=== PATIENT | male | born 1955 | race Caucasian/White ===

== ENCOUNTER 2020-07-13 08:43 | Inpatient (IN) | payer BC, OTHER ==
[~2020-07-13] VITALS: Ht 195.6 cm; Wt 91.2 kg
--- NOTE | ~2020-07-13 | OP ---
PATIENT NAME: ALEJANDRO SPIVEY MEDICAL RECORD: [id number] :51 LOCATION:D. D.1208 ADMISSION DATE:07/18/20 SURGEON: JODI BRABA MD DATE OF OPERATION: 07/18/2020 PREOPERATIVE DIAGNOSES: 1. Avascular necrosis, left hip. 2. Osteoarthritis, left hip. POSTOPERATIVE DIAGNOSES: 1. Avascular necrosis, left hip. 2. Osteoarthritis, left hip. PROCEDURE PERFORMED: Left total hip arthroplasty. INDICATIONS FOR THE PROCEDURE: Mr. Spivey is a 64-year-old male with history of left hip pain. X-rays show evidence of advanced avascular necrosis with collapse as well as some arthritis in the hip. I talked with him. Pain is worsening and is beginning to affect his mobility. He has elected to proceed with surgery for left total hip arthroplasty. Risks, benefits and alternatives of surgery were discussed with the patient and consent was obtained. DESCRIPTION OF THE PROCEDURE: The patient was met in the holding area where his identity and confirmation of procedure was performed. Left lower extremity was marked. He was taken to the operating room where he was placed supine on the operating table and anesthesia was administered. He was then positioned on the Burnham table. Extremities were positioned and padded appropriately. Left lower extremity was prepped and draped in a sterile fashion. The patient received preoperative antibiotics as well as TXA and a timeout was performed before initiating the case. On initiation of the case, an anterior Shi-Krishna approach was utilized for our exposure. We incised through the skin and subcutaneous tissues, dissected down to the tensor fascia. The fascia was then split longitudinally and the interval between tensor and sartorius/rectus was utilized for deep exposure. The lateral circumflex vessels were identified, tagged and cauterized. We then dissected down to the anterior hip capsules, placed retractors around the superior and inferior femoral neck. Retractor was also placed over the anterior brim of the acetabulum. The anterior capsule was then excised. It was noted to be very thickened and inflamed. Once the capsule was excised, the retractors were repositioned around our femoral neck and our femoral neck cut was completed. The femoral head was removed with the corkscrew device. The head measured a size 54 and there was a large flap of cartilage over the superior aspect of the head that was loose with a subchondral bony collapse. Retractors were repositioned around the acetabulum and tissue from around the acetabulum and the floor of the acetabulum was debrided. We then began reaming starting with a size 43 and reaming up sequentially to a size [address] a 58-mm cup. The cup was placed and malleted into position. There was noted to have good alignment and positioning on x-ray. The center cap was then placed and the liner was tapped into position. We then turned our attention to the proximal femur. The leg was externally rotated and a hook was placed under the proximal femur. We then placed retractors medially and over the shoulder and the leg was taken into extension and adduction. Tissue was released from the shoulder as the hip was elevated to allow for full exposure. Once we were pleased with our exposure, we began preparing the proximal femur using a cookie cutter followed by the canal finder. We broached up to a size 15 and trialed this with a standard head and neck. It was a little loose, but I thought we OPERATIVE REPORT [id number] ALEJANDRO SPIVEY would be able to make up for this with lengthening and our size 15 stem was placed. We then trialled with a +6 and +9 head again, but still had some instability in the hip. We therefore removed the size 15 stem and then trialled up to a 16 and a trial this with the high offset neck and +6 head and had improved fit and stability of the hip. Our final size 16 stem was placed and tapped into position. It did sit a couple millimeters proud, which assisted us with our tensioning. A +6 ceramic head was placed and tapped into position. The hip was reduced and had good stability. X-rays showed good fit of our stem with near equal leg lengths. The wound was irrigated thoroughly with saline. Joint solution was injected around the capsule of the proximal femur. The tensor fascia was closed with a running Vicryl suture. Subcutaneous tissues were irrigated thoroughly with saline and a drain was placed extrafascial. Tissue was closed over the drain. Subcutaneous skin was closed with Vicryl and the skin was closed with a Monocryl. A Prineo Dermabond dressing was then placed, covered with a sterile dressing. The patient was turned back over to anesthesia where he was awakened, extubated, and taken to the recovery room in stable condition. POSTOPERATIVE PLAN: The patient is going to be admitted for routine postoperative care. He will receive 24 hours of postoperative antibiotics, will be started on DVT prophylaxis tomorrow. Physical therapy will be consulted to assist with mobilization, weightbearing as tolerated on the left lower extremity. PLAN: Home with home health upon discharge. COMPLICATIONS: None. ESTIMATED BLOOD LOSS: 100 mL. ANESTHESIA: General. TRANSINT:[id number] Voice Confirmation ID: [id number] DOCUMENT ID: [id number] JODI BARBA MD CC: [id number] DICTATION DATE: 07/18/202036 COLLECTION CLERK: 07/19/20 0451 ADM IN [place] [id number] [place] [id number]
[2020-07-13 12:35] LABS: BILIRUBIN NEGATIVE (NEGATIVE); KETONE NEGATIVE (NEGATIVE); NITRITE NEGATIVE (NEGATIVE); UROBILINOGEN NORMAL mg/dL (< 2)
[2020-07-13] MEDS ORDERED: AMOX TR-K CLV 21 TAB PO (13:22)
[2020-07-13] MEDS ORDERED: CENTRUM MEN'S1 EACH PO (13:23)
[2020-07-13] MEDS ORDERED: ZYLOPRIM300 MG PO (13:23)
[2020-07-13] MEDS ORDERED: FENOFIBRATE160 MG PO (13:23)
[2020-07-13] MEDS ORDERED: COZAAR50 MG PO (13:23)
[2020-07-13] MEDS ORDERED: PRAVACHOL40 MG PO (13:24)
[2020-07-13] MEDS ORDERED: RELAFEN750 MG PO (13:24)
[2020-07-13] MEDS ORDERED: PROTONIX40 MG PO (13:24)
[2020-07-13] MEDS ORDERED: ERGOCALCIF50000 UNIT PO (13:25)
[2020-07-13 13:30] LABS: ANION GAP 8.3 mmol/L (8-16); CALCIUM 10.2 mg/dL (8.5-10.1); CARBON DIOXIDE 30.5 mmol/L (21.0-32.0); CREATININE - SERUM 1.1 mg/dL (0.6-1.3); POTASSIUM - SERUM 3.8 mmol/L (3.5-5.1)
[2020-07-13 13:37] LABS: APTT 30.6 SECONDS (22.8-39.4); PROTIME 12.2 SECONDS (11.6-15.0)
[2020-07-15 11:01] LABS: BASOPHILS 0.5 % (0-2); EOSINOPHILS 2.1 % (0-7); HEMATOCRIT 46.2 % (42.0-54.0); HEMOGLOBIN 15.6 g/dL (13.5-17.5); IMMATURE GRANULOCYTES 0.5 % (0-5); LYMPHOCYTE ABS# 1.08 10x3/uL (1.32-3.57); LYMPHOCYTES 17.5 % (15-50); MCH 33.5 pg (26.0-34.0); MCHC 33.8 g/dL (31.0-37.0); MCV 99.1 fL (80.0-100.0); MEAN PLATELET VOLUME 10.1 fL (7.4-10.4); MONOCYTES 9.5 % (2-11); NEUTROPHIL ABS# 4.32 10x3/uL (1.78-5.38); NEUTROPHILS 69.9 % (40-80); PLATELET COUNT 185 10x3/uL (130-400); RBC 4.66 10x6/uL (4.20-6.10); RDW 13.4 % (11.5-14.5); WBC 6.2 10x3/uL (4.8-10.8)
[2020-07-18] VITALS (14 sets, daily range): BP systolic 100–154; BP diastolic 62–88; BMI 24.1; BMI 23.9
--- NOTE | 2020-07-18 11:05 | NUR ---
RECEIVED TO ROOM 1208 VIA BED FROM PACU. A/O X3. DENIES PAIN AT THIS TIME. DRESSING TO LEFT HIP IS DRY AND INTACT. SKIN INTACT ELSEWHERE. DENIES NEEDS.
--- NOTE | 2020-07-18 18:18 | NUR ---
ATE ALL OF SUPPER. DENIES NEEDS. NO CHANGES NOTED. AT BEDSIDE.
--- NOTE | 2020-07-18 19:21 | NUR ---
PATIENT RESTING IN BED WITH NO S/S OF DISTRESS. GUEST AT BEDSIDE. VSS. PLACED SCD HOSE ON PATIENT. PATIENT STATES VERY LITTLE PAIN AND THAT HE DOES NOT NEED PAIN MEDS AT THIS TIME. DR. BARBA AT BEDSIDE, OBTAINED ORDER FOR NICOTINE PATCH PER PATIENT REQUEST. PATIENT DENIES OTHER NEEDS AT THIS TIME. BED IN LOWEST POSITION, CALL LIGHT IN REACH, BED ALARM ON, ENCOURAGED PATIENT TO CALL WITH NEEDS.
--- NOTE | 2020-07-18 19:51 | NUR ---
PATIENT STATES HE SMOKES 1.5 PACKS PER DAY. CALLED PHARMACY TO VERY WHICH NICOTINE PATCH WOULD WORK BEST AFTER RECEIVING ORDER FROM DR. BARBA.
--- NOTE | 2020-07-18 20:39 | NUR ---
ADMINISTERED MEDS PER ORDERS INCLUDING PAIN MED FOR PATIENT C/O 5 PAIN. DRESSING TO LEFT HIP C/D/I. PLACED ICE PACK TO LEFT HIP. PATIENT DEMONSTRATED PROPER USE OF INCENTIVE SPIROMETER. DENIES OTHER NEEDS AT THIS TIME.
[2020-07-19 04:50] VITALS: BP 115/70
[2020-07-19 06:03] LABS: BASOPHILS 0.2 % (0-2); EOSINOPHILS 1.1 % (0-7); HEMATOCRIT 35.8 % (42.0-54.0); HEMOGLOBIN 11.8 g/dL (13.5-17.5); IMMATURE GRANULOCYTES 0.3 % (0-5); LYMPHOCYTE ABS# 0.91 10x3/uL (1.32-3.57); LYMPHOCYTES 13.9 % (15-50); MEAN PLATELET VOLUME 10.4 fL (7.4-10.4); MONOCYTES 11.6 % (2-11); NEUTROPHIL ABS# 4.77 10x3/uL (1.78-5.38); NEUTROPHILS 72.9 % (40-80); RBC 3.58 10x6/uL (4.20-6.10); RDW 13.3 % (11.5-14.5); WBC 6.5 10x3/uL (4.8-10.8)
[2020-07-19 06:11] LABS: ALBUMIN 2.6 g/dL (3.4-5.0); ANION GAP 7.4 mmol/L (8-16); BILIRUBIN - TOTAL 0.4 mg/dL (0.2-1.3); CALCIUM 8.6 mg/dL (8.5-10.1); CARBON DIOXIDE 28.9 mmol/L (21.0-32.0); CREATININE - SERUM 1.1 mg/dL (0.6-1.3); MAGNESIUM - SERUM 1.4 mg/dL (1.8-2.4); POTASSIUM - SERUM 3.3 mmol/L (3.5-5.1); PROTEIN - SERUM 5.3 g/dL (6.4-8.2)
[2020-07-19 06:17] LABS: PLATELET COUNT 139 10x3/uL (130-400)
[2020-07-19 07:12] VITALS: BP 108/64
--- NOTE | 2020-07-19 07:28 | NUR ---
AWAKE AND ALERT. ORIENTED X3. NO C/O AT THIS TIME. LUNGS ARE CLEAR BILATERALLY, NO COUGH NOTED. REPORTED USED IS INSTRUCTED. SKIN IS INTACT WITHOUT REDNESS EXCEPT INCISION TO RIGHT GROIN AREA WHICH HAS A DRY INTACT DRESSING IN PLACE. DENIES NEEDS.
--- NOTE | 2020-07-19 08:25 | NUR ---
REQUESTED AND GIVEN ONE HYDROCODONE PO FOR C/O LEFT UPPER THIGH PAIN LEVEL 5. WILL MONITOR. ATE ALL OF BREAKFAST AND TOOK AM MEDS WITHOUT DIFFICULTY.
--- NOTE | 2020-07-19 09:30 | NUR ---
AMBULATED IN HALLWAY WITH PT USING RW. DID 200 FEET. NO C/O INCREASED PAIN REPORTED.
[2020-07-19 11:00] VITALS: BP 120/70
[2020-07-19 13:01] VITALS: Ht 195.6 cm; Wt 91.2 kg
--- NOTE | 2020-07-19 13:04 | NUR ---
ATE ALL OF LUNCH. DENIES NEEDS. VOIDED 50 CC CLEAR YELLOW URINE. WILL CONTINUE TO MONITOR.
[2020-07-19 14:00] VITALS: BP 126/72
--- NOTE | 2020-07-19 14:23 | MORECARE ---
CASE MANAGEMENT DISCHARGE SUMMARY PATIENT: ALEJANDRO SPIVEY UNIT: [id number] ADM DATE: 07/18/20 AGE: 64 : 51 SEX: M ROOM/BED: D.1208 AUTHOR: ESTEFANÍA ALMANZA PHYSICIAN: REFERRING PHYSICIAN: JODI BARBA MD DATE OF SERVICE: 07/19/20 Discharge Plan Patient Name: ALEJANDRO SPIVEY [facility] [facility] 1955 Planned Disposition: Home with Home Health Anticipated Discharge Date: Discharge Date: Expected LOS: Initial Reviewer: [email or web address] Initial Review Date: 07/18/2020 Generated: 07/19/20 3:23 pm DCPIA - Discharge Planning Initial Assessment Updated by [email or web address]: Ashley Rodriges on 07/19/20 2:23 pm * Is the patient Alert and Oriented? Yes * PCP VANDANA * Pharmacy [facility] * Preadmission Environment Home with Family * ADLs Independent * Equipment None * List name and contact numbers for known caregivers / representatives who currently or will assist patient after discharge: RASHAD ( ) [phone] * Verbal permission to speak to the caregivers and representatives has been obtained from the patient. Yes * Community resources currently utilized None * Additional services required to return to the preadmission environment? Yes * Can the patient safely return to the preadmission environment? Yes * Has this patient been hospitalized within the prior 30 days at any hospital? No Patient Name: ALEJANDRO SPIVEY Page [phone] at 1423 All edits/amendments must be made on the electronic document DICTATION DATE: 07/19/20 1423 SOFTWARE TESTER: ADELAIDA 07/19/20 1423 RPT#: [id number] DC DATE: STATUS: ADM IN [facility] [address] [place] [address] END OF REPORT
--- NOTE | 2020-07-19 14:34 | MORECARE ---
CASE MANAGEMENT DISCHARGE SUMMARY PATIENT: ALEJANDRO SPIVEY UNIT: [id number] ADM DATE: 07/18/20 AGE: 64 : 51 SEX: M ROOM/BED: D.1208 AUTHOR: ARCHIE,DOC PHYSICIAN: REFERRING PHYSICIAN: JODI BARBA MD DATE OF SERVICE: 07/19/20 Discharge Plan Patient Name: ALEJANDRO SPIVEY Facility: [facility]:[place] : 1955 Planned Disposition: Home with Home Health Anticipated Discharge Date: Discharge Date: Expected LOS: Initial Reviewer: [email or web address] Initial Review Date: 07/18/2020 Generated: 07/19/20 3:33 pm Comments DCP- Discharge Planning Updated by [id number]: Ashley Rodriges on 07/19/20 1:[address] Patient Name: ALEJANDRO SPIVEY Admission Status: Elective Accout number: [id number] Admission Date: 07-18-2020 : 1955 Admission Diagnosis: Attending: STERLING Current LOS: 1 Anticipated DC Date: Planned Disposition: Home with Home Health Primary Insurance: [employer] OUT OF STATE Discharge Planning Comments: CM met with patient & to complete initial dc planning assessment. CM educated patient on the CM role and verbal consent given by patient to complete assessment. Patient lives at home in [place] with his where he states he is independent with his care. At discharge patient plans to return home and feels this is a safe discharge. CM discussed availability of home health, rehab services, and medical equipment. He does not have any DME, but I have ordered his per his request a walker, BSC and a tub transfer bench from [facility] [place]. They will deliver it to the hospital before he is discharged. They would like to use [facility] for home health. I will send the referral to them, I called and spoke with Sofia Torres and let her know. Patient denied known discharge needs at this time. CM will continue to follow and will assist as needed with dc plans/needs Can Coverer: Ashley Rodriges DCPIA - Discharge Planning Initial Assessment Updated by [email or web address]: Ashley Rodriges on 07/19/20 2:23 pm * Is the patient Alert and Oriented? Yes * PCP VANDANA * Pharmacy [facility] * Preadmission Environment Home with Family * ADLs Independent * Equipment None * List name and contact numbers for known caregivers / representatives who currently or will assist patient after discharge: RASHAD ( ) [phone] * Verbal permission to speak to the caregivers and representatives has been obtained from the patient. Yes * Community resources currently utilized None * Additional services required to return to the preadmission environment? Yes * Can the patient safely return to the preadmission environment? Yes * Has this patient been hospitalized within the prior 30 days at any hospital? No External Providers External Provider: OTHER-OTHER Next Contact Date: Service Request Date: Service Type: Resolution: Reviewer: Comments: Last DP export: 07/19/20 1:23 pm Patient Name: ALEJANDRO SPIVEY Page [phone] at 1434 All edits/amendments must be made on the electronic document DICTATION DATE: 07/19/201432 INVESTMENT CONSULTANT: ADELAIDA 07/19/20 143 RPT#: [id number] DC DATE: STATUS: ADM IN [facility] [address] [place] [address] END OF REPORT
[2020-07-19] MEDS ORDERED: HYDROCODONE-AC1 EAC2 PO (14:44)
--- NOTE | 2020-07-19 15:22 | NUR ---
DISCHARGED TO HOME AMBULATORY WITH . DISCHARGE INSTRUCTIONS GIVEN BOTH VERBALLY AND WRITTEN. ALL QUESTIONS ANSWERED. PATIENT VERBALIZED UNDERSTANDING OF SAME. NEEDED PRESCRIPTIONS GIVEN TO PATIENT. IV TO RIGHT WRIST D/C WITH CATHETER INTACT. ALL BELONGINGS WITH PATIENT.
--- NOTE | 2020-07-19 15:34 | MORECARE ---
CASE MANAGEMENT DISCHARGE SUMMARY PATIENT: ALEJANDRO SPIVEY UNIT: [id number] ADM DATE: 07/18/20 AGE: 64 : 51 SEX: M ROOM/BED: D.1208 AUTHOR: ARCHIE,DOC PHYSICIAN: REFERRING PHYSICIAN: JODI BARBA MD DATE OF SERVICE: 07/19/20 Discharge Plan Patient Name: ALEJANDRO SPIVEY Facility: [facility]:[place] : 1955 Planned Disposition: Home with Home Health Anticipated Discharge Date: Discharge Date: 07/19/2020 Expected LOS: Initial Reviewer: [email or web address] Initial Review Date: 07/18/2020 Generated: 07/19/20 4:33 pm Comments DCP- Discharge Planning Updated by [email or web address]: Ashley Rodriges on 07/19/20 1:[address] Patient Name: ALEJANDRO SPIVEY Admission Status: Elective Accout number: [id number] Admission Date: 07-18-2020 : 1955 Admission Diagnosis: Attending: STERLING Current LOS: 1 Anticipated DC Date: Planned Disposition: Home with Home Health Primary Insurance: [employer] OUT OF STATE Discharge Planning Comments: CM met with patient & to complete initial dc planning assessment. CM educated patient on the CM role and verbal consent given by patient to complete assessment. Patient lives at home in [place] with his where he states he is independent with his care. At discharge patient plans to return home and feels this is a safe discharge. CM discussed availability of home health, rehab services, and medical equipment. He does not have any DME, but I have ordered his per his request a walker, BSC and a tub transfer bench from [facility]. They will deliver it to the hospital before he is discharged. They would like to use [facility] for home health. I will send the referral to them, I called and spoke with Sofia Torres and let her know. Patient denied known discharge needs at this time. CM will continue to follow and will assist as needed with dc plans/needs Auto Travel Counselor: Ashley Rodriges DCPIA - Discharge Planning Initial Assessment Updated by [email or web address]: Ashley Rodriges on 07/19/20 2:23 pm * Is the patient Alert and Oriented? Yes * PCP VANDANA * Pharmacy [facility] * Preadmission Environment Home with Family * ADLs Independent * Equipment None * List name and contact numbers for known caregivers / representatives who currently or will assist patient after discharge: RASHAD ( ) [phone] * Verbal permission to speak to the caregivers and representatives has been obtained from the patient. Yes * Community resources currently utilized None * Additional services required to return to the preadmission environment? Yes * Can the patient safely return to the preadmission environment? Yes * Has this patient been hospitalized within the prior 30 days at any hospital? No External Providers External Provider: OTHER-OTHER Next Contact Date: Service Request Date: Service Type: Resolution: Reviewer: Comments: Last DP export: 07/19/20 1:34 pm Patient Name: ALEJANDRO SPIVEY Page [phone] at 1534 All edits/amendments must be made on the electronic document DICTATION DATE: 07/19/20 1534 SUPPLEMENTAL MANAGER: ADELAIDA 07/19/20 1534 RPT#: [id number] DC DATE:07/19/20 STATUS: DIS IN [facility] [address] [place] [address] END OF REPORT
--- NOTE | 2020-07-20 09:22 | MORECARE ---
CASE MANAGEMENT DISCHARGE SUMMARY PATIENT: ALEJANDRO SPIVEY UNIT: [id number] ADM DATE: 07/18/20 AGE: 64 : 51 SEX: M ROOM/BED: D.1208 AUTHOR: ARCHIE,DOC PHYSICIAN: REFERRING PHYSICIAN: JODI BARBA MD DATE OF SERVICE: 07/20/20 Discharge Plan Patient Name: ALEJANDRO SPIVEY Facility: [facility]:[place] : 1955 Planned Disposition: Home with Home Health Anticipated Discharge Date: Discharge Date: 07/19/2020 Expected LOS: Initial Reviewer: [email or web address] Initial Review Date: 07/18/2020 Generated: 07/20/20 10:21 am Comments DCP- Discharge Planning Updated by [email or web address]: Ashley Rodriges on 07/19/20 1:[address] Patient Name: ALEJANDRO SPIVEY Admission Status: Elective Accout number: [id number] Admission Date: 07-18-2020 : 1955 Admission Diagnosis: Attending: STERLING Current LOS: 1 Anticipated DC Date: Planned Disposition: Home with Home Health Primary Insurance: [employer] OUT OF STATE Discharge Planning Comments: CM met with patient & to complete initial dc planning assessment. CM educated patient on the CM role and verbal consent given by patient to complete assessment. Patient lives at home in [place] with his where he states he is independent with his care. At discharge patient plans to return home and feels this is a safe discharge. CM discussed availability of home health, rehab services, and medical equipment. He does not have any DME, but I have ordered his per his request a walker, BSC and a tub transfer bench from [facility]. They will deliver it to the hospital before he is discharged. They would like to use [facility] for home health. I will send the referral to them, I called and spoke with Sofia Torres and let her know. Patient denied known discharge needs at this time. CM will continue to follow and will assist as needed with dc plans/needs Sourcing Manager: Ashley Rodriges DCPIA - Discharge Planning Initial Assessment Updated by [email or web address]: Ashley Rodriges on 07/19/20 2:23 pm * Is the patient Alert and Oriented? Yes * PCP VANDANA * Pharmacy [facility] * Preadmission Environment Home with Family * ADLs Independent * Equipment None * List name and contact numbers for known caregivers / representatives who currently or will assist patient after discharge: RASHAD ( ) [phone] * Verbal permission to speak to the caregivers and representatives has been obtained from the patient. Yes * Community resources currently utilized None * Additional services required to return to the preadmission environment? Yes * Can the patient safely return to the preadmission environment? Yes * Has this patient been hospitalized within the prior 30 days at any hospital? No Last DP export: 07/19/20 2:34 pm Patient Name: ALEJANDRO SPIVEY Page [phone] at 0922 All edits/amendments must be made on the electronic document DICTATION DATE: 07/20/20921 ORDER RUNNER: ADELAIDA 07/20/20921 RPT#: [id number] DC DATE:07/19/20 STATUS: DIS IN [facility] [address] [place] [address] END OF REPORT
== END 2020-07-19 15:31 | disposition home health service (06) | DRG 470 ==
LOC: D.M3 07-18 05:50 → D.SDCHOLD 07-18 05:50 → D.OPS 07-18 07:30 → EDSTATUS 07-18 07:30 → D.MS 07-18 07:30 → D.M3 07-18 10:54
PROVIDERS: Family Medicine; ADMIT Orthopaedic Surgery; ATTEND Orthopaedic Surgery
PROC: 0SRB03Z Replacement of Left Hip Joint with Ceramic Synthetic Substitute, Open Approach (ICD-10-PCS; principal; 2020-07-18 07:30)
DX: M87.852 Other osteonecrosis, left femur (principal); E87.1 Hypo-osmolality and hyponatremia; M16.12 Unilateral primary osteoarthritis, left hip; I10 Essential (primary) hypertension; K21.9 Gastro-esophageal reflux disease without esophagitis; E78.5 Hyperlipidemia, unspecified; E87.6 Hypokalemia; E83.42 Hypomagnesemia